=== PATIENT | female | born 1945 | race Caucasian/White ===

== ENCOUNTER 2020-06-19 12:31 | Emergency (ER) | payer MEDICARE, OTHER ==
--- OUTSIDE RECORDS SUMMARY | 2020-06-19 12:33 | XMS REPORT | Summary of Care ---
:1945 Author Organization [facility] Address [address] [place] [address] Care Team Providers Name Role Phone Jacob Haley Primary Care Provider Reason for Referral (Routine) Status Reason Specialty Diagnoses / Referred By Referred To Procedures Contact Contact New Request Vascular Surgery Diagnoses Leg swelling James Veronica BILATERAL VENOUS DUPLEX LOWER EXTREMITY BY VASCULAR LAB MD Asia [address] [place] [phone] Reason for Visit Reason Comments LEG SWELLING (Routine) Status Reason Specialty Diagnoses / Referred By Referred To Procedures Contact Contact Closed SHAYY-VASCULAR Diagnoses Atherosclerosis of [place] arteries of extremities with rest pain, bilateral legs Edema, unspecified Essential (primary) hypertension Jacob Haley Jennifer, SURGERY / Procedures CONSULT VASCULAR SURGERY NEW VISIT (FIRST TIME) [address] Jung ALEXANDRA Vascular Surgery [facility] [address] [facility] [address] [place], [place] Phone: [phone] Phone: Fax: Encounter Details Date Type Department Care Team Description 04/22/2020 Office Visit [facility] Vascular Asia Veronica L eg swelling (Primary Surgery- Inga ALEXANDRA Dx) [address] [place] [address] [address] [address] [place], [place] [phone] [address] [phone] Allergies No Known Allergiesdocumented as of this encounter (statuses as of 04/22/2020) Medications Medication Sig Dispensed Refills Start Date End Date Status levothyroxine (EUTHYROX) Take 100 mcg by 0 Active 100 mcg tablet mouth. chlorthalidone 25 mg Take 25 mg by 0 Active tablet mouth daily. atorvastatin 10 mg tablet Take 10 mg by 0 Active mouth at bedtime. ASPIRIN LOW DOSE ORAL Take 81 mg by 0 Active mouth. documented as of this encounter (statuses as of 04/22/2020) Active Problems Problem Noted Date Leg swelling 04/22/2020 documented as of this encounter (statuses as of 04/22/2020) Social History Tobacco Use Types Packs/Day Years Used Date Never Assessed Sex Assigned at Date Recorded Not on file Job Start Date Occupation Industry Not on file Not on file Not on file Travel History Travel Start Travel End No recent travel history available. COVID-19 Exposure Response Date Recorded In the last month, have you been in contact with No / Unsure 04/22/2020 8:30 AM CDT someone who was confirmed or suspected to have Coronavirus / COVID-19? documented as of this encounter Last Filed Vital Signs Vital Sign Reading Time Taken Comments Blood Pressure 146/83 04/22/2020 8:30 AM CDT Pulse 108 04/22/2020 8:30 AM CDT Temperature 36.7 C (98 F) 04/22/2020 8:30 AM CDT Respiratory Rate 18 04/22/2020 8:30 AM CDT Oxygen Saturation - - Inhaled Oxygen Concentration - - Weight 88.7 kg (195 lb 9.6 oz) 04/22/2020 8:30 AM CDT Height - - Body Mass Index - - documented in this encounter Progress Notes Asia Veronica MD - 04/22/2020 8:30 AM CDTI discussed the patient with Dr. Gill then personally examined the patient on 04/22/2020. I agree with the note as detailed by Dr. Gill. I actively participated in the decision-making process regarding the assessment and plan of care. Please see the resident's note for additional details. Venous duplex, compression stockings, elevation when able, 6 week f/u. Asia Veronica MD, VI [facility] Vascular Surgery Fausto Webb MD - 04/22/2020 8:30 AM CDT Vascular Surgery Clinic Note Date of Service: 04/22/2020 HISTORY OF PRESENT ILLNESS: This 74 year old year old female patient presents with chief complaint of aching and swollen legs. For the past few years, the patient has noticed a worsening pain in bilateral lower extremities from the calf down to her feet. The pain is slightly worst on the left side, but both are very bothersome. She describes the pain as dull and achy and can reach up to an 8 of 10 in severity. The pain is worsened with standing like when she showers or takes out the trash. The pain is relieved by sitting down and subsides after a few minutes. She also endorses approximately 2 months of bilateral leg swelling. She does note that the swelling coincides with starting of atorvastatin 10 mg daily. The swelling is not relieved by laying down and is present upon awaking in the morning. She tried compression stockings but had difficulty getting them on and they were too uncomfortable. 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 Hypothyroidism Hyerlipidemia No past surgical history on file. Medications: Current Outpatient Medications on File Prior to Visit Medication Sig Dispense Refill ASPIRIN LOW DOSE ORAL Take 81 mg by mouth. atorvastatin 10 mg tablet Take 10 mg by mouth at bedtime. chlorthalidone 25 mg tablet Take 25 mg by mouth daily. levothyroxine (EUTHYROX) 100 mcg tablet Take 100 mcg by mouth. No current facility-administered medications on file prior to visit. I have reviewed the social history, it is significant for 50 pack year smoking history. I have reviewed the family history, it is non-contributory. Allergies: No Known Allergies Make sure patient is not allergic to Contrast (Iodine): No Review of Systems: (-)=Negative,(+)=Positive Constitutional: (-) fever, (-) chills Eyes: (-) Amarosis fugax Mouth/Throat: (-) facial droop Cardiovascular: (-) chest pain, (-) palpitations Respiratory: (-) cough, (-) shortness of breath, (-) dyspnea on exertion Gastrointestinal: (-) weight loss, (-) abdominal pain, (-) nausea, (-) vomiting Endocrine: (+) thyroid disease, (-) heat intolerance, (-) diabetes, (-) cold intolerance, (-) polyuria, (-) polydipsia, (-) renal insufficiency Musculoskeletal: negative Integumentary: (+) swelling Hematologic: (-) easy bruising, (-) previous heparin and (-) previous exposure Infectious Disease: (-) Neuro: negative Physical Exam: BP (!) 146/83 (BP Location: Left arm, Patient Position: Sitting, BP CUFF SIZE: Adult Large) | [id number] | Temp 36.7 C (98 F) (Oral) | Resp 18 | Wt 195 lb 9.6 oz (88.7 kg) Constitutional: alert, healthy and no acute distress Facial Droop: No Eyes: extra ocular movements intact Head: normal Respiratory: breathing comfortably on room air Cardio: regular rate Extremities: +3 pitting edema bilaterally up to the knee Neurologic: alert and oriented x 3 Psychiatric: alert, with appropriate affect Hematologic: (-) bruises and (-) hematoma Pulses: Left DP: Wave form heard on doppler Left PT: Wave form heard on doppler Right DP: Wave form heard on doppler Right PT: Wave form heard on doppler Labs: No new labs. Imaging: No new imaging. Vascular Labs: I independently reviewed the Vascular Lab reports. Significant abnormals are ANJANA of .84. Diagnosis: Renetta Cano is a 74 year old female likely to have Chronic Venous Insufficiency. ANJANA and presence of pedal pulses make PVD unlikely. Will order duplex study for evaluation and compression stocking trial. -Venous Duplex Study -Compression Stockings 20-30 mmHg support -6 week f/u Fausto Gill MD Surgery PGY-1 Tamar Trammell - 04/22/2020 8:30 AM Derek Cano is a 74 year old female comes to clinic independent in ambulation for new patient bilateral leg pain and swellin. Pt comes alone . Pt in NAD w/ pain reported 0/10. Pt preferred language is French. Pt. denies fall in last 12 months. Allergies and medications reviewed and updated. [facility] [address] [place] [address] - [address] Tamar Encarnacion 04/22/2020 8:36 AM documented in this encounter Plan of Treatment Date Type Specialty Care Team Description 04/29/2020 Operations Trainer Visit Cardiology Pc, Ad[facility] Vascular Room 1 - 06/10/2020 Office Visit Vascular Surgery Osiris Veronica MD [address] [place] [address] [phone] Health Maintenance Due Date Last Done Comments HEPATITIS C (HCV) SCREEN 1945 DTaP,Tdap,and Td Vaccines (1 - Tdap) 1957 Breast Cancer Screening (MAMMOGRAM) 1986 COLONOSCOPY 1996 Zoster Recombinant Vaccine (SHINGRIX) (1 of 2) 1996 Medicare Wellness Visit 2011 Osteoporosis Screening 2011 PNEUMOCOCCAL VACCINES 65+ (1 of 2 - PCV13) 2011 INFLUENZA VACCINE (#1) 2020 Depression Screening 04/22/2021 04/22/2020 documented as of this encounter Results Not on filedocumented in this encounter Visit Diagnoses Diagnosis Leg swelling - Primary Swelling of limb documented in this encounter Insurance Payer Benefit Plan / Subscriber ID Effective Phone Address T ype Group Dates MEDICARE MEDICARE PART A xxxxxxxxxxx 2011-Pres [phone] [employer] [place] [place] Medicare & B ent [id number] ANN[address]ISE STODDARD [address] [facility] [id number] 2019-Pres Indemnity AND LIFE BENEFITS ent documented as of this encounter"
--- OUTSIDE RECORDS SUMMARY | 2020-06-19 12:33 | XMS REPORT | Summary of Care ---
:1945 Author Organization [facility] - Health Address [address] [place] [address] Care Team Providers Name Role Phone Haley Jacob Tristin Primary Care Provider Encounter Details Date Type Department Care Team Description 06/02/2020 Orders Only [facility] Doctor Unassigned, No [address] [facility] [place] [address] [address] [place] [address] Allergies No Known Allergiesdocumented as of this encounter (statuses as of 06/02/2020) Medications Medication Sig Dispensed Refills Start Date [...] as of this encounter (statuses as of 06/02/2020) Active Problems Problem Noted Date Leg swelling 04/22/2020 documented as of this encounter (statuses as of 06/02/2020) Social History Tobacco Use Types Packs/Day Years Used Date Never Assessed Sex Assigned at Date Recorded Not on file documented as of this encounter Last Filed Vital Signs Not on filedocumented in this encounter Plan of Treatment Date Type Specialty Care Team Description 06/02/2020 Appointment Vascular Sonography Moises Beard MD [address] [place] [address] [address] [place], [place] [address] Ji Ford Cardio Vascular 06/10/2020 Office Visit Vascular Surgery Osirsi Veronica MD [address] [place] [address] [phone] Health Maintenance Due Date Last Done Comments HEPATITIS C (HCV) SCREEN 1945 DTaP,Tdap,and Td Vaccines (1 - Tdap) 1965 Breast Cancer Screening (MAMMOGRAM) 1986 COLON CANCER SCREENING ANNUAL FIT/FOBT 1996 COLON CANCER SCREENING FIT DNA EVERY 3 YEARS 1996 COLON CANCER SCREENING SIGMOIDOSCOPY EVERY 5 YEARS 1996 COLONOSCOPY 1996 Colorectal Cancer Screening 1996 Zoster Recombinant Vaccine (SHINGRIX) (1 of 2) 1996 Medicare Wellness Visit 2011 Osteoporosis Screening 2011 PNEUMOCOCCAL VACCINES 65+ (1 of 1 - PPSV23) 2011 INFLUENZA VACCINE (#1) 2020 Depression Screening 04/22/2021 04/22/2020 documented as of this encounter Procedures Procedure Name Priority Date/Time Associated Diagnosis Comme nts ASSIGNMENT OF BENEFITS Routine 06/02/2020 1:54 PM CDT documented in this encounter Results Not on filedocumented in this encounter Insurance Payer Benefit Plan / Subscriber ID Effective Phone Address T ype Group Dates MEDICARE MEDICARE PART A [id number] 2011-Pres [phone] [employer] [place] Medicare & B ent [id number] ANN[address]ISE STODDARD [phone] [facility] [id number] 2019-Pres Indemnity AND LIFE BENEFITS ent documented as of this encounter
--- OUTSIDE RECORDS SUMMARY | 2020-06-19 12:33 | XMS REPORT | Summary of Care ---
:1945 Author Organization [facility] Address [address] [place] [address] Care Team Providers Name Role Phone Jacob Haley Primary Care Provider Reason for Referral (Routine) Status Reason Specialty Diagnoses / Referred By Contact Refe rred To Procedures Contact New Request Diagnoses Encounter for screening for stenosis of carotid artery Asia Veronica Procedures CAROTID DUPLEX BILATERAL BY VASCULAR LAB [address] [place] [phone] Phone: Reason for Visit Reason Comments Leg Pain bilateral LEG SWELLING bilateral Encounter Details Date Type Department Care Team Description 06/10/2020 Office Visit [facility] [place] [facility] Vascular Asia Veronica E ncounter for Surgery- Inga ALEXANDRA screening for [address] stenosis of carotid Drive [place], [place] artery (Primary Dx) [address] [address] [place], [place] [phone] [address] [phone] Allergies No Known Allergiesdocumented as of this encounter (statuses as of 06/11/2020) Medications Medication Sig Dispensed Refills Start Date [...] as of this encounter (statuses as of 06/11/2020) Active Problems Problem Noted Date Hypertension 06/11/2020 Hyperlipidemia 06/11/2020 Leg swelling 04/22/2020 documented as of this encounter (statuses as of 06/11/2020) Social History Tobacco Use Types Packs/Day Years Used Date Never Assessed Sex Assigned at Date Recorded Not on file COVID-19 Exposure Response Date Recorded In the last month, have you been in contact with No / Unsure 06/10/2020 8:22 AM CDT someone who was confirmed or suspected to have Coronavirus / COVID-19? documented as of this encounter Last Filed Vital Signs Vital Sign Reading Time Taken Comments Blood Pressure 156/81 06/10/2020 8:22 AM CDT Pulse 108 06/10/2020 8:22 AM CDT Temperature 36.2 C (97.2 F) 06/10/2020 8:22 AM CDT Respiratory Rate 18 06/10/2020 8:22 AM CDT Oxygen Saturation - - Inhaled Oxygen Concentration - - Weight 87.8 kg (193 lb 9.6 oz) 06/10/2020 8:22 AM CDT Height - - Body Mass Index - - documented in this encounter Progress Notes Asia Veronica MD - 06/10/2020 8:15 AM CDTI discussed the patient with Dr. Nation then personally examined the patient on 06/10/2020. I agree with the note as detailed by Dr. Nation. I actively participated in the decision-making process regarding the assessment and plan of care. Please see the resident's note for additional details. Patient was not able to wear compression stockings as she stated they were hard to get on and painful. We gave her REBEKA hose in clinic today. Will also screen her for carotid disease given smoking history. Does complain of some slight worsening in [place] and leg swelling that started today - recommended that if itpersists or continues to worsen then to contact her PCP as they may need to increase diuretic therapy. Only shown to have left GSV below knee reflux which would not treat surgically given symptoms not c onsistent. Was unable to feel pulses in feet today given swelling but confirmed strong biphasic doppler signals in DP and PT bilaterally. RTC in 6 weeks. Asia Veronica MD, VI [facility] Vascular Surgery Tamar Encarnacion - 06/10/2020 8:15 AM Marciasixto Cano is a 74 year old female comes to clinic independent in ambulation for bilateral leg pain and swelling. Pt comes alone . Pt in NAD w/ pain reported 04/29. Pt preferred language is Mongolian. Pt. denies fall in last 12 months. Allergies and medications reviewed and updated. [facility] [address] [place] [address] Tamar Encarnacion 06/10/2020 8:23 AM Ethan Villatoro MD - 06/10/2020 8:15 AM CDT VASCULAR SURGERY CLINIC NOTE Progress Note Date of Service: 06/10/2020 Visit type: follow up venous studies HISTORY OF PRESENT ILLNESS: Renetta Cano is a 74 year old year old female patient with a history of HTN, HLD, and hypothyroidismwho is here BLE venous studies after new patient visit. She has concerns about severe leg pain whilestanding in shower and taking out the trash. One episode she could barely walk out of the shower on the account of her pain in both legs. When asked about laterality she believes the pain is more on the left. She doesn't have any typical symptoms of arterial insufficiency with bilateral palpable pulses. However her presentation fits more with venous insufficiency. She does not walk or exercise so shecannot give us symptoms of what her legs feel like on exertion. The main limiting factor for her activity is generalized fatigue. She does house activities without pain. She describes the pain as throbbing with swelling in both legs worse on the left than right. She smokes 1ppd for years and does not plan on lowering the amount. She was amenable to leg exercises. She wore compression stockings for 1 day that were too tight and uncomfortable and she did not see any improvements. She does have generalfatigue especially since COVID has started. No fever, no chills, no cough, no wheezing. She does notwant to make changes as she states she wants to take a "magic pill" to make it stop. 10-point ROS negative except per HPI. Current Outpatient Medications Medication Instructions ASPIRIN LOW DOSE ORAL 81 mg, Oral atorvastatin (LIPITOR) 10 mg, Oral, QHS chlorthalidone (HYGROTON) 25 mg, Oral, DAILY levothyroxine (EUTHYROX) 100 mcg, Oral Physical Exam: BP (!) 156/81 (BP Location: Left arm, Patient Position: Sitting, BP CUFF SIZE: Adult Medium) | Pulse 108 | Temp 36.2 C (97.2 F) (Temporal Artery) | Resp 18 | Wt 193 lb 9.6 oz (87.8 kg) Constitutional: no acute distress, alert and oriented x3 Respiratory: breathing unlabored on room air Abdomen: soft, symmetrical, non-distended Sensory Function: within normal limits Neuro: NFD Extremities/MSK: motor function within normal limits Vascular: +tri DP, PT bilaterally Psych: appropriate insight, affect and judgment Vascular Labs: Procedure A venous duplex examination of the BILATERAL lower extremities was performed to determine the presence or absence of venous patency and competency. Exam was performed in an upright and reverse Trendelenburg position. Rt Deep Findings The deep veins of the right lower extremity demonstrate complete coaptation of the vein jules with compression. Doppler flow analysis is spontaneous, phasic, and augments with distal compression. RT Superficial GSV at the saphenofemoral junction measures 0.537 cm GSV at the proximal thigh measures 0485 cm GSV at the mid thigh measures 0.444 cm GSV at the popliteal crease measures 0.281 cm GSV at the below the knee measures 0.225 cm SSV proximal measures 0.468 cm Anterior Accessory Saphenous Vein measures 0.372 cm. LT Deep Findings The deep veins of the left lower extremity demonstrate complete coaptation of the vein jules with compression. Doppler flow analysis is spontaneous, phasic, and augments with distal compression. LT Superficial GSV at the saphenofemoral junction measures 0.592 cm GSV at the proximal thigh measures 0.656 cm GSV at the mid thigh measures 0.581 cm GSV at the popliteal crease measures 0.343 cm GSV at the below the knee measures 0.297 cm SSV proximal measures 0.158 cm Anterior Accessory Saphenous Vein measures 0.355 cm. Interpretation Summary No evidence of deep or superficial venous thrombosis in either lower extremity. Superficial venous insufficiency lasting >500 milliseconds is identified in the greater saphenous veins below the knee (1112 milliseconds) on the LEFT lower extremity. 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 She hadissues with pain and difficulty putting compression stockings on that were 30-40mmHg. We suggested alower compression grade and gave her compression stockings that were appropriate for her size. She has agreed to try wearing them everyday with more monitor of leg pain. She also has bilateral leg swelling that does not reduce with elevation and had an SBP of 156 despite taking morning hypertensive meds. We suggested she contacts her PCP for possibly higher dose of diuretic. She also has some generalized fatigue and lethargia that may need to be investigated by her PCP due to her history of hypothyro idism. - Needs to see PCP for hypothyroidism and HTN/CHF surveillance - compression stockings 6 wks - RTC 6 weeks Patient seen and discussed with Dr. Veronica on 06/10/2020. Ethan Nation MD PGY-1, Vascular Surgery 06/10/2020 documented in this encounter Plan of Treatment Health Maintenance Due Date Last Done Comments [...] filedocumented in this encounter Visit Diagnoses Diagnosis Encounter for screening for stenosis of carotid artery - Primary documented in this encounter Insurance Payer Benefit Plan / Subscriber ID Effective Phone Address T [facility] Dates MEDICARE MEDICARE PART A [id number] 2011-Pres [phone] [employer] Medicare & B ent [id number] ANN[address]ISE STODDARD [phone] [facility] [id number] 2019-Pres Indemnity AND LIFE BENEFITS ent documented as of this encounter
--- OUTSIDE RECORDS SUMMARY | 2020-06-19 12:33 | XMS REPORT | Continuity of Care Document ---
:1945 Author Organization [facility] t Address [address] [place] [address] Care Team Providers Name Role Phone Glenys ALEXANDRA Attending Clinician Problems This patient has no known problems. Allergies, Adverse Reactions, Alerts This patient has no known allergies or adverse reactions. Medications This patient has no known medications. Procedures This patient has no known procedures. Encounters Start End Encounter Admission Attending Care Care Encounter Source Date/Time Date/Time Type Type Clinicians Facility Department ID 2020-06-10 2020-06-10 Office TIEN Veronica [id number] 08:10:28 08:57:17 Visit Asia Xiong [id number] Melchor [id number] Rajendra [phone] [address] Results This patient has no known results.
--- OUTSIDE RECORDS SUMMARY | 2020-06-19 12:33 | XMS REPORT | Summary of Care ---
:1945 Author Organization [facility] Address [address] [place] [address] Care Team Providers Name Role Phone Jacob Haley Primary Care Provider Reason for Referral (Routine) Status Reason Specialty Diagnoses / Referred By Contact Refe rred To Procedures Contact New Request Diagnoses Encounter for screening for stenosis of carotid artery Asia Veronica Procedures CAROTID DUPLEX BILATERAL BY VASCULAR LAB [address] [place] [phone] Phone: Reason for Visit Reason Comments Leg Pain bilateral LEG SWELLING bilateral Encounter Details Date Type Department Care Team Description 06/10/2020 Office Visit [facility] Vascular Asia Veronica E ncounter for Surgery- Inga ALEXANDRA screening for [address] stenosis of carotid Drive [place], [place] artery (Primary Dx) [address] [address] [place], [place] [phone] [address] [phone] Allergies No Known Allergiesdocumented as of this [...] in 6 weeks. Asia Veronica MD, VI [facility] Vascular Surgery Tamar Encarnacion - 06/10/2020 8:15 AM Marciasixto Cano is a 74 year old female comes to clinic independent in ambulation for bilateral leg pain and swelling. Pt comes alone . Pt in NAD w/ pain reported 04/29. Pt preferred language is Uzbek. Pt. denies fall in last 12 months. Allergies and medications reviewed and updated. [facility] [address] [place] [address] Tamar Encarnacion 06/10/2020 8:23 AM Ethan Villatoro [...] / Subscriber ID Effective Phone Address T [facility] Group Dates MEDICARE MEDICARE PART A [id number] 2011-Pres [phone] [employer] Medicare & B ent [id number] ANN[place]ISE STODDARD [phone] [facility] [id number] 2019-Pres Indemnity AND LIFE BENEFITS ent documented as of this encounter
--- OUTSIDE RECORDS SUMMARY | 2020-06-19 12:33 | XMS REPORT | Summary of Care ---
:1945 Author Organization [facility] Address [address] [place] [id number] Care Team Providers Name Role Phone Jacob Haley Primary Care Provider Reason for Referral (Routine) Status Reason Specialty Diagnoses / Referred By Referred To Procedures Contact Contact New Request Vascular Surgery Diagnoses Leg swelling James Veronica BILATERAL VENOUS DUPLEX LOWER EXTREMITY BY VASCULAR LAB MD Asia [address] [place] [phone] Reason for Visit Reason Comments LEG SWELLING (Routine) Status Reason Specialty Diagnoses / Referred By Referred To Procedures Contact Contact Closed SHAYY-VASCULAR Diagnoses 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, bilateral legs Edema, unspecified Essential (primary) hypertension Jacob Haley Jennifer, SURGERY / Procedures CONSULT VASCULAR SURGERY NEW VISIT (FIRST TIME) [address] ALEXANDRA Vascular Surgery [facility] [address] [facility] [address] [place], [place] Phone: [phone] Phone: Fax: Encounter Details Date Type Department Care Team Description 04/22/2020 Office Visit [facility] Vascular Asia Veronica L eg swelling (Primary Surgery- Inga ALEXANDRA Dx) [address] [place] [address] [address] [address] [place], [place] [phone] [address] [phone] Allergies No Known Allergiesdocumented as of this [...] Sitting, BP CUFF SIZE: Adult Large) | [id number] | Temp 36.7 C (98 F) (Oral) [...] pain reported 0/10. Pt preferred language is Amharic. Pt. denies fall in last 12 months. Allergies and medications reviewed and updated. [facility] [address] [place] [address] - [address] Tamar Encarnacion 04/22/2020 8:36 AM documented in this encounter Plan of Treatment Date Type Specialty Care Team Description 04/29/2020 Gas Producer Visit Cardiology P[facility], Adc Vascular Room 1 - 06/10/2020 Office Visit Vascular Surgery Osiris Veronica MD [address] [place] [address] [phone] Health Maintenance Due Date Last [...] SOHAM X Medicare & B ent [id number] ANNELISE STODDARD [phone] [facility] [id number] 2019-Pres Indemnity AND LIFE BENEFITS ent documented as of this encounter"
[2020-06-19 13:22] LABS: Absolute Lymphocytes (CBC) 2.9 K/uL (0.7-4.9); Basophils % 1.1 % (0-1.3); Hematocrit 38.8 % (36.0-45.0); Lymphocytes % 29.2 % (15.3-44.8); MPV 8.7 fL (7.6-11.3); RBC Red Blood Cell Count 4.15 M/uL (3.86-4.86)
[2020-06-19 13:36] LABS: Potassium 3.8 mmol/L (3.5-5.1)
[2020-06-19] MEDS ORDERED: BUPIVACAINE 0.5% PF 10 ML VIAL ONE (13:44)
[2020-06-19] MEDS ORDERED: LIDOCAINE 1% W/EPI 1:100,000 MDV 20 ML VIAL ONE (13:44)
--- NOTE | 2020-06-19 13:58 | ER ---
Nurse's Notes [facility] [place], [place] [facility] Name: Renetta Cano Age: 74 yrs Sex: Female : 1945 Arrival Date: 06/19/2020 Time: 12:32 Bed 7 Private MD: Jacob Haley E Diagnosis: Cutaneous abscess of groin-left;Cellulitis of groin-left Presentation: 06/19 12:43 Chief complaint: Patient states: left groin abscess with drainage x 1 week. Coronavirus sv screen: Client denies travel out of the [place] in the last 14 days. At this time, the client does not indicate any symptoms associated with coronavirus-19. Ebola Screen: No symptoms or risks identified at this time. Risk Assessment: Do you want to hurt yourself or someone else? Patient reports no desire to harm self or others. Onset of symptoms was June 12, 2020. 12:43 Method Of Arrival: Ambulatory sv 12:43 Acuity: BONILLA 3 sv 12:44 Initial Sepsis Screen: Does the patient meet any 2 criteria? HR > 90 bpm. No. Patient's sv initial sepsis screen is negative. Does the patient have a suspected source of infection? Yes: Skin breakdown/wound. Historical: - Allergies: 12:44 No Known Allergies; sv - PMHx: 12:44 None; sv - PSHx: 12:44 None; sv - Immunization history:: Adult Immunizations up to date. - Social history:: Smoking status: Patient reports the use of cigarette tobacco products, smokes one pack cigarettes per day. Screenin:22 Abuse screen: Denies threats or abuse. Nutritional screening: No deficits noted. ll1 Tuberculosis screening: No symptoms or risk factors identified. Fall Risk None identified. IV access (20 points). Ambulatory Aid- None/Bed Rest/Nurse Assist (0 pts). Gait- Normal/Bed Rest/Wheelchair (0 pts) Total Leone Fall Scale indicates No Risk (0-24 pts). Assessment: 13:50 General: Appears in no apparent distress. Behavior is calm, cooperative. Pain: ll1 Complains of pain in L groin Quality of pain is described as aching, Pain began 10 days. Derm: Abscess located on L groin is nickel sized, has purulent drainage. Vital Signs: 12:44 BP 135 / 66; Pulse 100; Resp 18; Temp 98.7; Pulse Ox 100% ; Weight 88.45 kg; Height 5 sv ft. 5 in. (165.10 cm); 14:20 BP 128 / 50; Pulse 98; Resp 18; Pulse Ox 99% ; ll1 12:44 Body Mass Index 32.45 (88.45 kg, 165.10 cm) sv ED Course: 12:32 Patient arrived in ED. mr 12:32 Jacob Haley MD is Private Physician. mr 12:43 Triage completed. sv 12:43 Arm band placed on. sv 12:47 Rafat Ayoub PA is PHCP. cp 12:47 Jennifer Connors MD is Attending Physician. cp 13:10 Initial lab(s) drawn, by me, sent to lab. Inserted saline lock: 20 gauge in right hand, dh3 using aseptic technique. Blood collected. 13:57 Carlton Loera MD is Referral Physician. cp 14:20 Socorro Vyas, KRISTIE is Primary Nurse. ll1 14:22 Assist provider with I \T\ D: of an abscess on left groin Performed by Rafat CASTELAN ll1 Wound packed. iodoform gauze, Dressing with 4X4s, tape Patient tolerated well. 14:23 Patient has correct armband on for positive identification. Placed in gown. Bed in low ll1 position. Call light in reach. 14:23 IV discontinued, intact, bleeding controlled, No redness/swelling at site. Pressure ll1 dressing applied. Administered Medications: 13:50 Drug: Lidocaine-Epinephrine -1%: (1:100,000) 10 ml Volume: 20 ml; Route: Infiltration; ll1 14:19 Follow up: Response: No adverse reaction ll1 13:50 Drug: Marcaine (0.5 %) 10 ml Volume: 10 ml; Route: Infiltration; ll1 14:20 Follow up: Response: No adverse reaction ll1 14:10 Drug: Bactrim (160 mg-800 mg (DS) 1 tablet Route: PO; ll1 14:20 Follow up: Response: No adverse reaction ll1 14:10 Drug: Doxycycline 100 mg Route: PO; ll1 14:20 Follow up: Response: No adverse reaction ll1 Outcome: 13:58 Discharge ordered by . cp 14:23 Discharged to home ambulatory. ll1 14:23 Condition: stable 14:23 Discharge instructions given to patient, Instructed on discharge instructions, follow up and referral plans. medication usage, wound care, Demonstrated understanding of instructions, follow-up care, medications, wound care, Prescriptions given X 4. 14:24 Patient left the ED. ll1 Signatures: Dina Caldwell RN RN Nargis Amaro mr Anitra, Rafat, ANNELISE Key, Isha [facility] Socorro Vyas RN RN 1 Corrections: (The following items were deleted from the chart) 12:46 12:44 Pulse 100bpm; Resp 18bpm; Pulse Ox 100%; Temp 98.7F; 88.45 kg; Height 5 ft. 5 sv in.; BMI: 32.4; sv 14:24 14:21 General: Appears in no apparent distress. Behavior is calm, cooperative, ll1 ll1 14:24 14:21 Pain: Complains of pain in L groin Quality of pain is described as aching, Pain 1 began 10 days ll1 14:24 14:21 Derm: Abscess located on L groin is nickel sized, has purulent drainage, ll1 ll1
--- NOTE | 2020-06-19 13:58 | EDPHYS ---
Physician Documentation [facility] Name: Renetta Cano Age: 74 yrs Sex: Female : 1945 Arrival Date: 06/19/2020 Time: 12:32 Bed 7 Private MD: Jacob Haley E ED Physician Jennifer Connors HPI: 06/19 13:00 This 74 yrs old Female presents to ER via Ambulatory with complaints of cp Abscess. 13:00 The patient presents with an abscess of the left groin. Description: draining, cp erythematous. Onset: The symptoms/episode began/occurred 1 week(s) ago. Associated signs and symptoms: Pertinent positives: drainage, erythema, swelling, Pertinent negatives: fever. Severity of symptoms: in the emergency department the symptoms are unchanged, despite home interventions. Historical: - Allergies: 12:44 No Known Allergies; sv - PMHx: 12:44 None; sv - PSHx: 12:44 None; sv - Immunization history:: Adult Immunizations up to date. - Social history:: Smoking status: Patient reports the use of cigarette tobacco products, smokes one pack cigarettes per day. ROS: 13:05 Skin: Positive for abscess, erythema, of the left groin. cp 13:05 Constitutional: Negative for body aches, chills, fever. cp 13:05 Abdomen/GI: Negative for abdominal pain. 13:05 : Negative for urinary symptoms. 13:05 All other systems are negative. Exam: 13:10 Constitutional: The patient appears in no acute distress, alert, awake, non-toxic, well cp developed, well nourished. 13:10 Head/Face: Normocephalic, atraumatic. cp 13:10 Chest/axilla: Inspection: normal. 13:10 Cardiovascular: Rate: tachycardic. 13:10 Respiratory: the patient does not display signs of respiratory distress, Respirations: normal. 13:10 Abdomen/GI: Inspection: abdomen appears normal, Palpation: abdomen is soft and non-tender, in all quadrants. 13:10 Skin: abscess, that is small, of the left groin, with drainage, that is purulent, with surrounding cellulitis, that is mild. Vital Signs: 12:44 BP 135 / 66; Pulse 100; Resp 18; Temp 98.7; Pulse Ox 100% ; Weight 88.45 kg; Height 5 sv ft. 5 in. (165.10 cm); 14:20 BP 128 / 50; Pulse 98; Resp 18; Pulse Ox 99% ; ll1 12:44 Body Mass Index 32.45 (88.45 kg, 165.10 cm) sv Procedures: 14:00 I \T\ D: Incision and drainage was performed for an abscess of the left groin Prepped cp with Betadine, Anesthetized with 8 ml's 1% Lidocaine w/ Epi. mixed with 0.5% marcaine. Incised with #11 blade. Drained small amount bloody fluid. Packed with iodoform gauze, Dressing: sterile 4x4 gauze, the patient tolerated the procedure well. MDM: 12:52 Patient medically screened. cp 13:10 Differential diagnosis: abscess, cellulitis. cp 13:57 Data reviewed: vital signs, nurses notes, and as a result, I will discharge patient. cp 13:57 Counseling: I had a detailed discussion with the patient and/or guardian regarding: the cp historical points, exam findings, and any diagnostic results supporting the discharge/admit diagnosis, the need for outpatient follow up, a general surgeon, to return to the emergency department if symptoms worsen or persist or if there are any questions or concerns that arise at home. 06/19 12:58 Order name: CBC with Diff; Complete Time: 13:55 cp 06/19 13:55 Interpretation: Normal except: RDW 15.5; EOSINOPHIL % 5.7. cp 06/19 12:58 Order name: BMP; Complete Time: 13:55 cp 06/19 13:56 Interpretation: Normal except: CL 108; BUN 19; GFR 51. cp 06/19 12:58 Order name: I\T\D Setup; Complete Time: 13:36 cp 06/19 12:58 Order name: IV; Complete Time: 13:14 cp Administered Medications: 13:50 Drug: Lidocaine-Epinephrine -1%: (1:100,000) 10 ml Volume: 20 ml; Route: Infiltration; ll1 14:19 Follow up: Response: No adverse reaction ll1 13:50 Drug: Marcaine (0.5 %) 10 ml Volume: 10 ml; Route: Infiltration; ll1 14:20 Follow up: Response: No adverse reaction ll1 14:10 Drug: Bactrim (160 mg-800 mg (DS) 1 tablet Route: PO; ll1 14:20 Follow up: Response: No adverse reaction ll1 14:10 Drug: Doxycycline 100 mg Route: PO; ll1 14:20 Follow up: Response: No adverse reaction ll1 Disposition: 14:10 Chart complete. cp Disposition: 06/19/20 13:58 Discharged to Home. Impression: Cutaneous abscess of groin - left, Cellulitis of groin - left. - Condition is Stable. - Discharge Instructions: Skin Abscess, Cellulitis, Adult. - Prescriptions for Doxycycline Hyclate 100 mg Oral Tablet - take 1 tablet by ORAL route every 12 hours; 20 tablet. Tramadol 50 mg Oral Tablet - take 1 tablet by ORAL route every 8 hours as needed; 12 tablet. Bactrim DS 800- 160 mg Oral Tablet - take 1 tablet by ORAL route every 12 hours for 10 days; 20 tablet. Fluconazole 150 mg Oral Tablet - take 1 tablet by ORAL route once daily take 1 tablet at onset of symptoms and second tablet after finishing antibiotics; 2 tablet. - Medication Reconciliation Form, Thank You Letter, Antibiotic Education, Prescription Opioid Use form. - Follow up: Carlton Loera MD; When: Tomorrow; Reason: Wound Recheck. - Problem is new. - Symptoms have improved. Signatures: Dispatcher [employer] Dina Moran RN RN Rafat Cantor PA PA cp Socorro Vyas RN RN ll1 Corrections: (The following items were deleted from the chart) 14:24 13:58 06/19/2020 13:58 Discharged to Home. Impression: Cutaneous abscess of groin - ll1 left; Cellulitis of groin - left. Condition is Stable. Forms are Medication Reconciliation Form, Thank You Letter, Antibiotic Education, Prescription Opioid Use. Follow up: Carlton Loera; When: Tomorrow; Reason: Wound Recheck. Problem is new. Symptoms have improved. cp
[2020-06-19] MEDS ORDERED: DOXYCYCLINE 100 MG CAP PO ONE (14:15)
[2020-06-19] MEDS ORDERED: SMZ./TMP. 800/160 MG TABLET ONE (14:15)
[2020-06-22 17:59] VITALS: TEMP 98.7
[2020-06-22 18:00] VITALS: BP 128/50; O2SAT 99
== END 2020-06-19 14:24 | disposition home or self-care (01) ==
LOC: ER 12:31
PROC: 0J9C0ZZ Drainage of Pelvic Region Subcutaneous Tissue and Fascia, Open Approach (ICD-10-PCS; principal; 2020-06-19)
DX: L03.314 Cellulitis of groin (principal); F17.210 Nicotine dependence, cigarettes, uncomplicated
CPT/HCPCS: 36415; 80048; 85025; 99284

== ENCOUNTER 2020-11-01 03:04 | Emergency (ER) | payer OTHER ==
--- OUTSIDE RECORDS SUMMARY | 2020-11-01 03:07 | XMS REPORT | Summary of Care ---
:1945 Author Organization [facility] - [facility] Address [address] [place] [address] Care Team Providers Name Role Phone Jacob Haley Primary Care Provider Reason for Referral (Routine) Status Reason Specialty Diagnoses / Referred By Referred To Procedures Contact Contact New Request Vascular Surgery Diagnoses Pain in both lower extremities [place], James ANJANA WITH STRESS BY VASCULAR LAB MD Asia [address] [place] [phone] Reason for Visit Reason Comments Follow-up carotid stenosis Encounter Details Date Type Department Care Team Description 08/05/2020 Office Visit [facility] Vascular Asia Veronica P ain in both lower Surgery- Inga ALEXANDRA extremities (Primary [address] Drive [place], [place] [address] [address] [place], [place] [phone] [address] [phone] Allergies No Known Allergiesdocumented as of this encounter (statuses as of 08/05/2020) Medications Medication Sig Dispensed Refills Start Date [...] as of this encounter (statuses as of 08/05/2020) Active Problems Problem Noted Date Hypertension 06/11/2020 Hyperlipidemia 06/11/2020 Leg swelling 04/22/2020 documented as of this encounter (statuses as of 08/05/2020) Social History Tobacco Use Types Packs/Day Years Used Date Never Assessed Sex Assigned at Date Recorded Not on file COVID-19 Exposure Response Date Recorded In the last month, have you been in contact with No / Unsure 08/05/2020 11:46 AM CDT someone who was confirmed or suspected to have Coronavirus / COVID-19? documented as of this encounter Last Filed Vital Signs Vital Sign Reading Time Taken Comments Blood Pressure 137/73 08/05/2020 11:46 AM CDT Pulse 90 08/05/2020 11:46 AM CDT Temperature 36.2 C (97.1 F) 08/05/2020 11:46 AM CDT Respiratory Rate 20 08/05/2020 11:46 AM CDT Oxygen Saturation 98% 08/05/2020 11:46 AM CDT Inhaled Oxygen Concentration - - Weight 84.3 kg (185 lb 12.8 oz) 08/05/2020 11:46 AM CDT Height 172.7 cm (5' 8") 08/05/2020 11:46 AM CDT Body Mass Index 28.25 08/05/2020 11:46 AM CDT documented in this encounter Progress Notes Ethan Nation MD - 08/05/2020 10:45 AM CDT VASCULAR SURGERY CLINIC NOTE Progress Note Date of Service: 08/05/2020 Visit type: Follow up clinic visit HISTORY OF PRESENT ILLNESS: Renetta Cano is a 75 year old year old female patient with a medical history of HTN, HLD, and hypothyroidism who is here for venous study for leg swelling and unusual and screening carotid study follow up . She reports she notices a pattern with the pain and now mainly occurs when she stands and walks. She does not walk much further in a day than to her trash can, but during these activities she hasan achy pain. She smokes 1ppd for years and does not plan on lowering the amount. She does not do any physical activity. No fever, no chills, no fatigue, no weight change. No vision changes, no troubles breathing, no N/V. She had a few nights of crampy "seth horse" like pain a few nights ago but has since resolved. 10-point ROS negative except per HPI. Current Outpatient Medications Medication Instructions ASPIRIN LOW DOSE ORAL 81 mg, Oral atorvastatin (LIPITOR) 10 mg, Oral, QHS chlorthalidone (HYGROTON) 25 mg, Oral, DAILY levothyroxine (EUTHYROX) 100 mcg, Oral Physical Exam: BP 137/73 (BP Location: Right arm, Patient Position: Sitting, BP CUFF SIZE: Adult Large) | Pulse 90 | Temp 36.2 C (97.1 F) (Temporal Artery) | Resp 20 | Ht 1.727 m (5' 8") | Wt 84.3 kg (185 lb12.8 oz) | SpO2 98% | BMI 28.25 kg/m Constitutional: no acute distress, alert and oriented x3 Respiratory: breathing unlabored on room air Abdomen: soft, symmetrical, non-distended Sensory Function: within normal limits Neuro: NFD Extremities/MSK: swelling around medial ankle bilatera Vascular: palpable DP bilaterally Skin: no cuts, no wounds, no rashes or bruises Psych: appropriate insight, affect and judgment Labs/Imaging: No new labs Vascular Labs: Procedure A venous duplex examination of the BILATERAL lower extremities was performed to determine the presence or absence of venous patency and competency. Exam was performed in an upright and reverse Trendelenburgposition. Rt Deep Findings The deep veins of [...] extremity demonstrate complete coaptation of the vein jlues with compression. Doppler flow analysis is spontaneous, [...] greater saphenous veins below the knee (1112 milliseconds)on the LEFT lower extremity. Stenosis PSV cm/sec EDV cm/sec PSV cm/sec EDV cm/sec Stenosis NA -105.0 -27.5 Dist ICA -75.0 -21.4 NA NA -97.4 -22.2 Mid ICA -103.0 -28.2 NA 50-79% stenosed -278.0 -82.3 Prox ICA -165.0 -46.7 1-15% stenosed NA -123.0 NA Prox ECA -84.9 -1.6 NA NA -87.5 -23.2 Dist CCA 85.3 16.1 NA NA 129.0 29.2 Mid CCA 89.1 11.4 NA NA 100.0 NA Prox CCA 125.0 25.2 NA NA 32.4 NA Vertebral A 95.2 18.0 NA Other Plaque Plaque Other NA Heterogeneous, irregular plaque Prox ICA Heterogeneous, irregular plaque NA Antegrade flow NA Vertebral A NA Antegrade flow -0.81 ICA/CCA ratio cm/sec -1.9 Procedure A bilateral carotid duplex scan was performed. Right Extracranial There is intimal thickening in the common carotid artery. There is a moderate amount of hard plaque noted in the bulb extending into the internal carotid artery with color flow disturbance, spectral broadening, and elevated peak velocity noted in the internal carotid artery? findings suggest 50-79% stenosis. The external carotid artery is patent. The vertebral artery is antegrade. Left Extracranial There is intimal thickening in the common carotid artery. There is minimal hard plaque noted in the bulb, extending into the internal carotid artery with no evidence of color flow disturbance or hemodynamically significant peak velocities? findings suggest 1-15% stenosis in the internal carotid artery. The internal carotid artery is tortuous. The external carotid artery is patent. The vertebral artery is antegrade. Interpretation Summary Left: Findings suggest 1-15% stenosis in the internal carotid artery. Right: Findings suggest 50-79% stenosis in the internal carotid artery. Measurements and Calculations Right No Laterality Left Unit CCA ratio elgin 129.0 89.1 cm/sec ICA ratio elgin -105.0 -165.0 cm/sec Prox SCLA PSV 196.0 84.0 cm/sec Prox SCLA EDV 13.2 cm/sec Assessment/Plan Renetta Cano is a 75 year old female with HPI as above leg pain with standing and minimal activity. Her symptoms seem to be constantly changing, and although she has palpable DP pulse and h/o triphasicsignals in DP and PT bilaterally we will obtain stress ANJANA. She also agreed to use stationary bike at home to help improve circulation and hopefully provide some symptom relief. Her screening carotid study showed asymptomatic LANETTE with elevated velocity of 278 cm/s in her carotid study. - Follow up stress ANJANA - RTC 3 mo [Carotid follow-up will be in 6mo] Patient seen and discussed with Dr. Veronica on 08/05/2020. Ethan Nation MD PGY-1, Vascular Surgery 08/05/2020 Yoselyn Coker RN - 08/05/2020 10:45 AM CDTSaddy Cano is a 75 year old female comes to clinic independent in ambulation for carotid stenosis.Pt comes alone . Pt in NAD w/ pain reported 0/10. Pt preferred language is Israeli. Pt. denies fall in last 12 months. Allergies and medications reviewed and updated. 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 X Medicare & B ent [id number] ANNELISE STODDARD [phone] [facility] [id number] 2019-Pres Indemnity AND LIFE BENEFITS ent documented as of this encounter
--- OUTSIDE RECORDS SUMMARY | 2020-11-01 03:07 | XMS REPORT | Summary of Care ---
:1945 Author Organization [facility] - [facility] Address [address] [place] [address] Care Team Providers Name Role Phone Jacob Haley Primary Care Provider Reason for Referral (Routine) Status Reason Specialty Diagnoses / Referred By Referred To Procedures Contact Contact New Request Vascular Surgery Diagnoses Pain in both lower extremities Glenys, James ANJANA WITH STRESS BY VASCULAR LAB MD Asia [address] [place] [phone] Reason for Visit Reason Comments Follow-up carotid stenosis Encounter Details Date Type Department Care Team Description 08/05/2020 Office Visit [facility] Vascular Asia Veronica P ain in both lower Surgery- Inga ALEXANDRA extremities (Primary [address] Drive [place], [place] [address] [address] [place], [place] [phone] [address] [phone] Allergies No Known Allergiesdocumented as of this [...] Prox SCLA EDV 13.2 cm/sec Assessment/Plan Renetta aCno is a 75 year old female with [...] pain reported 0/10. Pt preferred language is Salvadorean. Pt. denies fall in last 12 months. Allergies and medications reviewed and updated. documented in this encounter Plan of Treatment Date Type Specialty Care Team Description 10/31/2020 Connie Cleaner Visit Cardiology Pc, Adc Vascular Room 1 - 11/11/2020 Office Visit Vascular Surgery Osiris Veronica MD [address] [place] [address] [phone] Health Maintenance Due Date Last Done [...] ype Group Dates MEDICARE MEDICARE PART A [id number] 2011-Pres [phone] [employer] X Medicare & B ent [id number] ANNELISE STODDARD [phone] [facility] [id number] 2019-Pres Indemnity AND LIFE BENEFITS ent documented as of this encounter
--- OUTSIDE RECORDS SUMMARY | 2020-11-01 03:07 | XMS REPORT | Summary of Care ---
:1945 Author Organization [facility] - [facility] Address [address] [place] [id number] Care Team Providers Name Role Phone Jacob Haley Primary Care Provider Reason for Referral (Routine) Status Reason Specialty Diagnoses / Referred By Referred To Procedures Contact Contact New Request Vascular Surgery Diagnoses Pain in both lower extremities Glenys, James ANJANA WITH STRESS BY VASCULAR LAB MD Asia [address] [place] [phone] Reason for Visit Reason Comments Follow-up carotid stenosis Encounter Details Date Type Department Care Team Description 08/05/2020 Office Visit [facility] Vascular Asia Veronica P ain in both lower Surgery- Inga ALEXANDRA extremities (Primary [address] Drive [place], [place] [address] [id number] [place], [place] [phone] [address] [phone] Allergies No Known Allergiesdocumented as of this [...] 278 cm/s in her carotid study. - Continue ASA/statin - Start stationary bike workouts - Follow up Stress ANJANA - RTC 3 mo [Carotid follow-up [...] pain reported 0/10. Pt preferred language is Vietnamese. Pt. denies fall in last 12 months. Allergies and medications reviewed and updated. documented in this encounter Plan of Treatment Date Type Specialty Care Team Description 10/31/2020 [facility] Visit [facility]iology [facility], Adc Vascular Room 1 - 11/11/2020 Office Visit Vascular Surgery Osiris Veronica MD [address] [place] [address] [phone] Health Maintenance Due Date Last [...] ype Group Dates MEDICARE MEDICARE PART A [id number] 2011-Pres [phone] [employer] X Medicare & B ent [id number] ANNELISE STODDARD [phone] [facility] [id number] 2019-Pres Indemnity AND LIFE BENEFITS ent documented as of this encounter
--- OUTSIDE RECORDS SUMMARY | 2020-11-01 03:07 | XMS REPORT | Summary of Care ---
:1945 Author Organization [facility] - [facility] Address [address] [place] [id number] Care Team Providers Name Role Phone Jacob Haley Primary Care Provider Reason for Referral (Routine) Status Reason Specialty Diagnoses / Referred By Referred To Procedures Contact Contact New Request Vascular Surgery Diagnoses Pain in both lower extremities Glenys, James ANJANA WITH STRESS BY VASCULAR LAB MD Asia [address] [place] [phone] Reason for Visit Reason Comments Follow-up carotid stenosis Encounter Details Date Type Department Care Team Description 08/05/2020 Office Visit [facility] Vascular Asia Veronica P ain in both lower Surgery- Inga ALEXANDRA extremities (Primary [address] Drive [place], [place] [address] [address] [place], [place] [phone] [phone] Allergies No Known Allergiesdocumented as of this encounter (statuses as of 08/09/2020) Medications Medication Sig Dispensed Refills Start Date [...] as of this encounter (statuses as of 08/09/2020) Active Problems Problem Noted Date Hypertension 06/11/2020 Hyperlipidemia 06/11/2020 Leg swelling 04/22/2020 documented as of this encounter (statuses as of 08/09/2020) Social History Tobacco Use Types Packs/Day Years [...] CDT documented in this encounter Progress Notes Asia Veronica MD - 08/05/2020 10:45 AM CDTI discussed the patient with Dr. Nation then personally examined the patient on 08/05/2020. I agree with the note as detailed by Dr. Nation. I actively participated in the decision-making process regarding the assessment and plan of care. Please see the resident's note for additional details. Asia Veronica MD, RPVI [facility] Vascular Surgery Ethan adhikari MD - 08/05/2020 10:45 AM CDT VASCULAR [...] 6mo] Patient seen and discussed with Dr. Veroniac on 08/05/2020. Ethan Nation MD PGY-1, Vascular Surgery 08/05/2020 TAYoselyn chaudhari RN - 08/05/2020 10:45 AM CDTSaddy Cano is a 75 year old female comes to clinic independent in ambulation for carotid stenosis.Pt comes alone . Pt in NAD w/ pain reported 0/10. Pt preferred language is Scottish. Pt. denies fall in last 12 months. Allergies and medications reviewed and updated. documented in this encounter Plan of Treatment Date Type Specialty Care Team Description 10/31/2020 Professional [facility] Visit Cardiology Pc, Adc Vascular Room 1 - 11/11/2020 Office Visit Vascular Surgery Osiris Veronica MD [address] [place] [address] [phone] Health Maintenance Due Date Last Done [...] ype Group Dates MEDICARE MEDICARE PART A [id number] 2011-Pres [phone] [employer] X Medicare & B ent [id number] MOI [place] [id number] [facility] [id number] 2019-Pres Indemnity AND LIFE BENEFITS ent documented as of this encounter
--- OUTSIDE RECORDS SUMMARY | 2020-11-01 03:07 | XMS REPORT | Continuity of Care Document ---
:1945 Author Organization [facility] t Address [address] [place] [address] Care Team Providers Name Role Phone Glenys ALEXANDRA Attending Clinician Problems This patient has no known problems. Allergies, Adverse Reactions, Alerts This patient has no known allergies or adverse reactions. Medications This patient has no known medications. Procedures This patient has no known procedures. Encounters Start End Encounter Admission Attending Care Care Encounter Source Date/Time Date/Time Type Type Clinicians Facility Department ID 2020-08-05 2020-08-09 Office TIEN Veronica [id number] 10:20:19 15:14:40 Visit Asia Xiong [id number] Melchor [id number] Rajendra [phone] [address] Results This patient has no known results.
[2020-11-01 04:27] LABS: Absolute Lymphocytes (CBC) 4.1 K/uL (0.7-4.9); Basophils % 0.7 % (0-1.3); Hematocrit 37.5 % (36.0-45.0); Lymphocytes % 29.2 % (15.3-44.8); MPV 9.4 fL (7.6-11.3); RBC Red Blood Cell Count 3.99 M/uL (3.86-4.86)
[2020-11-01 04:31] LABS: Protime INR 0.93
[2020-11-01 04:33] LABS: Potassium 3.3 mmol/L (3.5-5.1)
[2020-11-01] MEDS ORDERED: MORPHINE 2 MG/ML SYR ONE ×2 (04:38→05:35)
[2020-11-01] MEDS ORDERED: ONDANSETRON 4 MG/2 ML VIAL ONE (04:38)
--- NOTE | 2020-11-01 04:50 | ER ---
Nurse's Notes [facility] Name: Renetta Cano Age: 75 yrs Sex: Female : 1945 Arrival Date: 11/01/2020 Time: 03:05 Bed 6 Private MD: Diagnosis: Arterial occlusion left upper extremity Presentation: 11/01 03:00 Chief complaint: EMS states: complained of left sided weakness loss of sensation rr5 started 1 1/2 hour ago. now she complaints of pain on her left leg.history of AFIB. 03:00 Coronavirus screen: Client denies travel out of the [place] in the last 14 days. At this rr5 time, the client does not indicate any symptoms associated with coronavirus-19. Ebola Screen: Patient negative for fever greater than or equal to 101.5 degrees Fahrenheit, and additional compatible Ebola Virus Disease symptoms Patient denies exposure to infectious person. Patient denies travel to an Ebola-affected area in the 21 days before illness onset. An acute neurological deficit is present. The charge nurse has been notified. The patient has been moved to a treatment area. The patients blood glucose was checked before arriving to the hospital and was found to be normal. Initial Sepsis Screen: Does the patient meet any 2 criteria? No. Patient's initial sepsis screen is negative. Does the patient have a suspected source of infection? No. Patient's initial sepsis screen is negative. Risk Assessment: Do you want to hurt yourself or someone else? Patient reports no desire to harm self or others. Note send straight to CT scan. Onset of symptoms was November 01, 2020. 03:00 Method Of Arrival: EMS: [facility] rr5 03:00 Acuity: BONILLA 1 rr5 03:00 Care prior to arrival: Medication(s) given: fenatnyl 150 mcg/IV IV initiated. 20 GA, in rr5 the right antecubital area, Glucose check: 121. 03:00 Note patient stated she sleep around 2300H woke up at around 2 AM her left started to rr5 feel numb. Triage Assessment: 03:00 The onset of the patients symptoms was less than three hours ago. rr5 03:00 The onset of the patients symptoms was November 01, 2020 at 01:30. rr5 03:00 Neuro: Reports numbness in left arm weakness. rr5 Stroke Activation: Symptom onset < 3 hours Physician: Stroke Attending; Name: dr. crouch; Notified At: 03:00; Arrived At: 03:00 Physician: Chief Stroke Resident; Name: ; Notified At: 03:00; Arrived At: Physician: Stroke Resident; Name: ; Notified At: 03:00; Arrived At: Physician: ED Attending; Name: ; Notified At: 03:00; Arrived At: Physician: ED Resident; Name: ; Notified At: 03:00; Arrived At: Historical: - Allergies: 03:00 No Known Allergies; rr5 - Home Meds: 03:00 Aspirin Oral [Active]; Chlorthalidone Oral [Active]; levothyroxine oral [Active]; rr5 atorvastatin oral oral [Active]; - PMHx: 03:00 Hypertension; mouth cancer; Hypothyroidism; Hyperlipidemia; rr5 - PSHx: 03:00 mouth surgery; rr5 - Immunization history:: Adult Immunizations up to date. - Social history:: Smoking status: Patient reports the use of cigarette tobacco products, smokes one pack cigarettes per day. Screenin:00 Abuse screen: Denies threats or abuse. Denies injuries from another. Nutritional rr5 screening: No deficits noted. Tuberculosis screening: No symptoms or risk factors identified. Fall Risk Secondary diagnosis (15 points) CVA, IV access (20 points). Gait- Impaired (20 pts.). Mental Status- Oriented to own ability (0 pts). Total Leone Fall Scale indicates High Risk Score (45 or more points). Fall prevention measures have been instituted. Side Rails Up X 2 Placed Close to Nursing Station Frequent Obs/Assessments Occuring As available patient and family educated on Fall Prevention Program and Strategies. 03:00 VAN Screening: Arm Drift: Severe drift. Visual Disturbance: No visual disturbance rr5 noted. Aphasia: No aphasia noted. Neglect: No neglect noted. 04:00 Patient has been NPO before screening. The patient is alert, able to follow commands. rr5 The patient does not exhibit slurred or garbled speech The patient is not exhibiting difficulty speaking. The patient does not exhibit difficulty understanding words. The patient is able to swallow own secretions with no drooling or need for suction. Patient tolerated one teaspoon of water. No drooling, immediate coughing, gurgling, or clearing of the throat was noted. The patient tolerated 90mL of water. No drooling, immediate coughing, gurgling, or clearing of the throat was noted. The patient passed the bedside swallow screening. Oral medications may be given as ordered. Contact Physician for further diet orders. Provider notified of bedside swallow screening results: Joseph Crouch MD. Assessment: 03:00 VAN Scoring: Arm Drift: Severe drift Visual Disturbance: No visual disturbance noted. rr5 Aphasia: No aphasia noted. Neglect: No neglect noted. 03:10 General: Appears in no apparent distress. uncomfortable, Behavior is calm, cooperative, rr5 appropriate for age. Pain: Complains of pain in left arm Pain currently is 8 out of 10 on a pain scale. Quality of pain is described as aching, Pain began Is intermittent. 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 Cardiovascular: Capillary refill < 3 seconds Patient's skin is warm and dry. Respiratory: Airway is patent Respiratory effort is even, unlabored, Respiratory pattern is regular, symmetrical. GI: No signs and/or symptoms were reported involving the gastrointestinal system. : No signs and/or symptoms were reported regarding the genitourinary system. EENT: No signs and/or symptoms were reported regarding the EENT system. Derm: Skin is pale, left arm Skin temperature is cold at left arm. Musculoskeletal: Capillary refill is > 3 seconds, in left fingers. left hand. 04:00 Patient has been NPO before screening. The patient is alert, and able to follow rr5 commands. The patient does not exhibit slurred or garbled speech. The patient is not exhibiting difficulty speaking. The patient does not exhibit difficulty understanding words. The patient is able to swallow own secretions with no drooling or need for suction. Patient tolerated one teaspoon of water. No drooling, immediate coughing, gurgling, or clearing of the throat was noted. The patient tolerated 90mL of water. No drooling, immediate coughing, gurgling, or clearing of the throat was noted. The patient passed the bedside swallow screening. Oral medications may be given as ordered. Contact Physician for further diet orders. Provider notified of bedside swallow screening results: Joseph Crouch MD. 04:01 Reassessment: unable to palpate pulse on the left arm, temperature is cold, delayed rr5 capillary refill. ED provider aware. doppler used no pulse detected, ED provider informed. 05:02 Reassessment: Patient appears in no apparent distress at this time. Patient and/or sg family updated on plan of care and expected duration. Pain level reassessed. report called to Lashawn FLOWERS accepting nurse for transfer. 05:15 Reassessment: Patient appears in no apparent distress at this time. Patient is alert, rr5 oriented x 3, equal unlabored respirations, skin warm/dry/pink. report given to MARIBELL awake alert, conscious and coherent not in distress, with ongoing heparin 30 ml/hr infusing well. vital signs hemodynamically stable. Vital Signs: 03:00 BP 192 / 90; Pulse 96; Resp 18; Temp 97.5; Pulse Ox 97% ; Weight 83.91 kg; Height 5 ft. rr5 5 in. (165.10 cm); Pain 8/10; 04:20 BP 155 / 85; Pulse 90; Resp 16; Pulse Ox 99% ; rr5 04:23 BP 155 / 76; Pulse 92; Resp 16; Pulse Ox 99% on R/A; sg 04:33 Weight 86.64 kg; rr5 04:50 BP 165 / 85; Pulse 89; Resp 17; Pulse Ox 98% on 2 lpm NC; rr5 05:15 BP 160 / 75; Pulse 85; Resp 19; Pulse Ox 99% on 2 lpm NC; rr5 04:33 Body Mass Index 31.78 (86.64 kg, 165.10 cm) rr5 NIH Stroke Scale Scores: 03:15 NIHSS Score: 2 rr5 04:17 NIHSS Score: 2 rr5 ED Course: 03:00 Arm band placed on right wrist. rr5 03:00 Patient has correct armband on for positive identification. Bed in low position. Call rr5 light in reach. Side rails up X2. 03:00 radiation monitor on. Pulse ox on. NIBP on. rr5 03:00 Maintain EMS IV. Dressing intact. Good blood return noted. Site clean \T\ dry. Gauge \T\ rr 5 site: G 20 right AC. 03:05 Patient arrived in ED. cl3 03:18 Joseph Crouch MD is Attending Physician. pkl 03:21 Delbert Bains, RN is Primary Nurse. rr5 03:26 CT Stroke Brain w/o Contrast In Process Unspecified. EDMS 03:26 Triage completed. rr5 03:30 Initial lab(s) drawn, by ED staff. rr5 03:31 EKG done, by ED staff, reviewed by Joseph Crouch MD. rr5 03:44 initiated a transfer with Erma Matos from [facility] Transfer [facility]. mw2 04:05 COVID swab sent to lab. Flu and/or RSV swab sent to lab. rr5 04:24 Stroke CXR 1 View In Process Unspecified. EDMS 04:40 Inserted saline lock: 20 gauge in right hand, using aseptic technique. rr5 04:42 administrative approval given by Erma Matos/ patient has been accepted to [facility] [address] bed 1461/ Dr. Pang has accepted the patient in transfer/ report to be called [phone]. 05:15 No provider procedures requiring assistance completed. Patient transferred, IV remains rr5 in place. intact, No redness/swelling at site. Administered Medications: 04:27 Drug: Zofran (Ondansetron) 4 mg Route: IVP; Site: right antecubital; rr5 05:10 Follow up: Response: No adverse reaction rr5 04:28 Drug: morphine 2 mg {Note: rass 0.} Route: IVP; Site: right antecubital; rr5 04:40 Drug: Heparin (DVT/PE- Bolus per protocol) - HEParin 80 units/kg {Co-Signature: rr5 sg (Delbert Bains RN).} Route: IVP; Site: right hand; 05:15 Follow up: Response: No adverse reaction rr5 04:42 Drug: Heparin (DVT/PE Drip) 18 units/kg/hr - (HEParin 68012 units, D5W 500 ml) sg {Co-Signature: rr5 (Delbert Bains RN).} Route: IV; Rate: calculated rate; Site: right hand; 05:15 Follow up: Response: No adverse reaction; IV Status: Infusion continued upon transfer rr5 05:20 Drug: morphine 2 mg {Note: rass 0.} Route: IVP; Site: right antecubital; rr5 05:21 Follow up: Response: No adverse reaction; RASS: Alert and Calm (0) rr5 Point of Care Testing: Blood Glucose: 03:00 Blood Glucose: 169 mg/dL; rr5 Ranges: Outcome: 04:49 ER care complete, transfer ordered by MD. loera 05:15 Transferred by ground EMS to [facility], Transfer form completed. rr5 05:15 Condition: stable 05:15 Instructed on the need for transfer. 05:18 Patient left the ED. mw2 NIH Stroke Scale - NIH Stroke Score Date: 11/01/2020 Time: 03:15 Total Score = 2 1a. Level of Consciousness (LOC) - 0(Alert) 1b. Level of Consciousness (LOC) (Year \T\ Age) - 0(Both) 1c. LOC Commands (Open \T\ Closes Eyes/Tobacco Drying Machine Operator) - 0(Both) 2. Best Gaze (Lateral Gaze Paresis) - 0(Normal) 3. Visual Field Loss - 0(No visual loss) 4. Facial Palsy - 0(Normal) 5a. Left Arm: Motor (10-second hold) - 1(Drift) 5b. Right Arm: Motor (10-second hold) - 0(No drift) 6a. Left Leg: Motor (5-second hold - always test supine) - 0(No drift) 6b. Right Leg: Motor (5-second hold - always test supine) - 0(No drift) 7. Limb Ataxia (finger/nose \T\ heel/sears - test with eyes open) - 0(Absent) 8. Sensory Loss (pinprick arms/legs/face) - 1(Mild to moderate loss) 9. Best Language: Aphasia (description/naming/reading) - 0(No aphasia) 10. Dysarthria (speech clarity - read or repeat words) - 0(Normal) 11. Extinction and Inattention (visual/tactile/auditory/spatial/personal) - 0(No abnormality) Initials: rr5 NIH Stroke Scale - NIH Stroke Score Date: 11/01/2020 Time: 04:17 Total Score = 2 1a. Level of Consciousness (LOC) - 0(Alert) 1b. Level of Consciousness (LOC) (Year \T\ Age) - 0(Both) 1c. LOC Commands (Open \T\ Closes Eyes/Tobacco Drying Machine Operator) - 0(Both) 2. Best Gaze (Lateral Gaze Paresis) - 0(Normal) 3. Visual Field Loss - 0(No visual loss) 4. Facial Palsy - 0(Normal) 5a. Left Arm: Motor (10-second hold) - 1(Drift) 5b. Right Arm: Motor (10-second hold) - 0(No drift) 6a. Left Leg: Motor (5-second hold - always test supine) - 0(No drift) 6b. Right Leg: Motor (5-second hold - always test supine) - 0(No drift) 7. Limb Ataxia (finger/nose \T\ heel/sears - test with eyes open) - 0(Absent) 8. Sensory Loss (pinprick arms/legs/face) - 1(Mild to moderate loss) 9. Best Language: Aphasia (description/naming/reading) - 0(No aphasia) 10. Dysarthria (speech clarity - read or repeat words) - 0(Normal) 11. Extinction and Inattention (visual/tactile/auditory/spatial/personal) - 0(No abnormality) Initials: rr5 Signatures: Dispatcher [employer] Farhat Rodney RN RN sg Joseph Crouch MD MD pkErik Chu mw2 Delbert Bains RN RN rr5 Christian Vyas cl3 Delbert Bains RN rr5
--- NOTE | 2020-11-01 04:50 | EDPHYS ---
Physician Documentation [facility] Name: Renetta Cano Age: 75 yrs Sex: Female : 1945 Arrival Date: 11/01/2020 Time: 03:05 Bed 6 Private MD: ED Physician Joseph Schroeder HPI: 11/01 03:31 This 75 yrs old Female presents to ER via EMS with complaints of Weakness. pkl 03:31 The patient presents to the emergency department with weakness of the left upper pkl extremity, that is moderate, paresthesias of the left lower extremity, that is moderate. Onset: The symptoms/episode began/occurred last known well at 11 PM. Patient went to bed and woke up at 2 AM complaining of numbness and weakness left upper extremity. Associated signs and symptoms: The patient has no apparent associated signs or symptoms. Patient has H/O of atrial fibrillation. Historical: - Allergies: 03:00 No Known Allergies; rr5 - Home Meds: 03:00 Aspirin Oral [Active]; Chlorthalidone Oral [Active]; levothyroxine oral [Active]; rr5 atorvastatin oral oral [Active]; - PMHx: 03:00 Hypertension; mouth cancer; Hypothyroidism; Hyperlipidemia; rr5 - PSHx: 03:00 mouth surgery; rr5 - Immunization history:: Adult Immunizations up to date. - Social history:: Smoking status: Patient reports the use of cigarette tobacco products, smokes one pack cigarettes per day. ROS: 03:31 Eyes: Negative for injury, pain, redness, and discharge, ENT: Negative for injury, pkl pain, and discharge, Neck: Negative for injury, pain, and swelling, Cardiovascular: Negative for chest pain, palpitations, and edema, Respiratory: Negative for shortness of breath, cough, wheezing, and pleuritic chest pain, Abdomen/GI: Negative for abdominal pain, nausea, vomiting, diarrhea, and constipation, Back: Negative for injury and pain, : Negative for injury, bleeding, discharge, and swelling, MS/Extremity: Negative for injury and deformity, Skin: Negative for injury, rash, and discoloration. 03:31 Neuro: Positive for numbness, weakness, of the left upper extremity. Exam: 03:31 Head/Face: Normocephalic, atraumatic. Eyes: Pupils equal round and reactive to light, pkl extra-ocular motions intact. Lids and lashes normal. Conjunctiva and sclera are non-icteric and not injected. Cornea within normal limits. Periorbital areas with no swelling, redness, or edema. ENT: Nares patent. No nasal discharge, no septal abnormalities noted. Tympanic membranes are normal and external auditory canals are clear. Oropharynx with no redness, swelling, or masses, exudates, or evidence of obstruction, uvula midline. Mucous membranes moist. Neck: Trachea midline, no thyromegaly or masses palpated, and no cervical lymphadenopathy. Supple, full range of motion without nuchal rigidity, or vertebral point tenderness. No Meningismus. Chest/axilla: Normal chest wall appearance and motion. Nontender with no deformity. No lesions are appreciated. Cardiovascular: Regular rate and rhythm with a normal S1 and S2. No gallops, murmurs, or rubs. Normal PMI, no JVD. No pulse deficits. Respiratory: Lungs have equal breath sounds bilaterally, clear to auscultation and percussion. No rales, rhonchi or wheezes noted. No increased work of breathing, no retractions or nasal flaring. Abdomen/GI: Soft, non-tender, with normal bowel sounds. No distension or tympany. No guarding or rebound. No evidence of tenderness throughout. Back: No spinal tenderness. No costovertebral tenderness. Full range of motion. Skin: Warm, dry with normal turgor. Normal color with no rashes, no lesions, and no evidence of cellulitis. MS/ Extremity: Pulses equal, no cyanosis. Neurovascular intact. Full, normal range of motion. 03:31 Neuro: Orientation: is normal, Mentation: is normal, Cranial nerves: grossly normal, Motor: Strength is 3/5 in the in left upper extremity, Sensation: numbness, that is moderate, of the left upper extremity. 03:31 Musculoskeletal/extremity: Extremities: grossly normal except: noted in the left upper pkl extremity: pain, cyanotic and cold. Left radial weak ( by doppler ). Vital Signs: 03:00 BP 192 / 90; Pulse 96; Resp 18; Temp 97.5; Pulse Ox 97% ; Weight 83.91 kg; Height 5 ft. rr5 5 in. (165.10 cm); Pain 8/10; 04:20 BP 155 / 85; Pulse 90; Resp 16; Pulse Ox 99% ; rr5 04:23 BP 155 / 76; Pulse 92; Resp 16; Pulse Ox 99% on R/A; sg 04:33 Weight 86.64 kg; rr5 04:50 BP 165 / 85; Pulse 89; Resp 17; Pulse Ox 98% on 2 lpm NC; rr5 05:15 BP 160 / 75; Pulse 85; Resp 19; Pulse Ox 99% on 2 lpm NC; rr5 04:33 Body Mass Index 31.78 (86.64 kg, 165.10 cm) rr5 NIH Stroke Scale Scores: 03:15 NIHSS Score: 2 rr5 04:17 NIHSS Score: 2 rr5 MDM: 03:18 Patient medically screened. pkl 03:31 Data reviewed: vital signs, nurses notes, lab test result(s), EKG, radiologic studies, pkl CT scan. ED course: Talked to Dr. Cm ( Neurologist at [facility] ) No thrombolytic, patient outside window for therapy.. 04:46 ED course: Talked to vascular surgeon and Dr. Pang ( Hospitalist ) Accepted trabsfer. pkl To initiate Heparin therapy. 11/01 03:36 Order name: Glucose, Ancillary Testing; Complete Time: 04:46 EDMS 11/01 04:03 Order name: Basic Metabolic Panel; Complete Time: 04:46 5 11/01 04:03 Order name: CBC with Diff; Complete Time: 04:46 5 11/01 04:03 Order name: Protime (+inr); Complete Time: 04:46 5 11/01 03:07 Order name: CT Stroke Brain w/o Contrast 11/01 04:03 Order name: Ptt, Activated; Complete Time: 04:46 rr5 11/01 04:03 Order name: Stroke CXR [address] [facility] 11/01 04:03 Order name: EKG; Complete Time: 04:[address] [facility] 11/01 04:03 Order name: Accucheck; Complete Time: 04:03 5 11/01 04:03 Order name: Cardiac monitoring; Complete Time: 04:[address] [facility] 11/01 04:03 Order name: EKG - Nurse/Tech; Complete Time: 04:[address] [facility] 11/01 04:03 Order name: IV Saline Lock; Complete Time: 04:04 5 11/01 04:03 Order name: Labs collected and sent; Complete Time: 04:04 rr5 11/01 04:03 Order name: NPO; Complete Time: 04:04 rr5 11/01 04:03 Order name: O2 Per Protocol; Complete Time: :58 rr5 11/01 04:03 Order name: O2 Sat Monitoring; Complete Time: :58 rr5 11/01 04:03 Order name: Stroke Swallow Screen; Complete Time: :58 rr5 11/01 04:04 Order name: Swallow Screen; Complete Time: 04:04 rr5 Administered Medications: 04:27 Drug: Zofran (Ondansetron) 4 mg Route: IVP; Site: right antecubital; rr5 05:10 Follow up: Response: No adverse reaction rr5 04:28 Drug: morphine 2 mg {Note: rass 0.} Route: IVP; Site: right antecubital; rr5 04:40 Drug: Heparin (DVT/PE- Bolus per protocol) - HEParin 80 units/kg {Co-Signature: rr5 sg (Delbert Bains RN).} Route: IVP; Site: right hand; 05:15 Follow up: Response: No adverse reaction rr5 04:42 Drug: Heparin (DVT/PE Drip) 18 units/kg/hr - (HEParin 26069 units, D5W 500 ml) sg {Co-Signature: rr5 (Delebrt Bains RN).} Route: IV; Rate: calculated rate; Site: right hand; 05:15 Follow up: Response: No adverse reaction; IV Status: Infusion continued upon transfer rr5 05:20 Drug: morphine 2 mg {Note: rass 0.} Route: IVP; Site: right antecubital; rr5 05:21 Follow up: Response: No adverse reaction; RASS: Alert and Calm (0) rr5 Point of Care Testing: Blood Glucose: 03:00 Blood Glucose: 169 mg/dL; rr5 Ranges: Critical Glucose Levels:Adult <50 mg/dl or >400 mg/dl <40 mg/dl or >180 mg/dl Disposition: 11/01/20 04:49 Transfer ordered to [facility]. Diagnosis is Arterial occlusion left upper extremity. - Reason for transfer: Higher level of care. - Accepting physician is Dr. Pang. - Condition is Stable. - Problem is new. - Symptoms are unchanged. NIH Stroke Scale - NIH Stroke Score Date: 11/01/2020 Time: 03:15 Total Score = 2 1a. Level of Consciousness (LOC) - 0(Alert) 1b. Level of Consciousness (LOC) (Year \T\ Age) - 0(Both) 1c. LOC Commands (Open \T\ Closes Eyes/Eeg Technologist) - 0(Both) 2. Best Gaze (Lateral Gaze Paresis) - 0(Normal) 3. Visual Field Loss - 0(No visual loss) 4. Facial Palsy - 0(Normal) 5a. Left Arm: Motor (10-second hold) - 1(Drift) 5b. Right Arm: Motor (10-second hold) - 0(No drift) 6a. Left Leg: Motor (5-second hold - always test supine) - 0(No drift) 6b. Right Leg: Motor (5-second hold - always test supine) - 0(No drift) 7. Limb Ataxia (finger/nose \T\ heel/sears - test with eyes open) - 0(Absent) 8. Sensory Loss (pinprick arms/legs/face) - 1(Mild to moderate loss) 9. Best Language: Aphasia (description/naming/reading) - 0(No aphasia) 10. Dysarthria (speech clarity - read or repeat words) - 0(Normal) 11. Extinction and Inattention (visual/tactile/auditory/spatial/personal) - 0(No abnormality) Initials: rr5 NIH Stroke Scale - NIH Stroke Score Date: 11/01/2020 Time: 04:17 Total Score = 2 1a. Level of Consciousness (LOC) - 0(Alert) 1b. Level of Consciousness (LOC) (Year \T\ Age) - 0(Both) 1c. LOC Commands (Open \T\ Closes Eyes/Eeg Technologist) - 0(Both) 2. Best Gaze (Lateral Gaze Paresis) - 0(Normal) 3. Visual Field Loss - 0(No visual loss) 4. Facial Palsy - 0(Normal) 5a. Left Arm: Motor (10-second hold) - 1(Drift) 5b. Right Arm: Motor (10-second hold) - 0(No drift) 6a. Left Leg: Motor (5-second hold - always test supine) - 0(No drift) 6b. Right Leg: Motor (5-second hold - always test supine) - 0(No drift) 7. Limb Ataxia (finger/nose \T\ heel/sears - test with eyes open) - 0(Absent) 8. Sensory Loss (pinprick arms/legs/face) - 1(Mild to moderate loss) 9. Best Language: Aphasia (description/naming/reading) - 0(No aphasia) 10. Dysarthria (speech clarity - read or repeat words) - 0(Normal) 11. Extinction and Inattention (visual/tactile/auditory/spatial/personal) - 0(No abnormality) Initials: rr5 Signatures: Dispatcher [employer] EDMS Farhat Vanegas, RN RN Joseph Schroeder MD MD [facility] Erik Newell [facility] Delbert Bains RN RN rr5 Delbert Bains RN rr5 Corrections: (The following items were deleted from the chart) 04:13 04:04 Influenza Screen (A \T\ B)+BA.LAB.BRZ ordered. EDMS EDMS 04:13 04:04 CORONAVIRUS+MR.LAB.BRZ ordered. EDMS EDMS 05:18 04:49 11/01/2020 04:49 Transfer ordered to [address] Diagnosis is Arterial occlusion left upper extremity. Reason for transfer: Higher level of care. Accepting physician is Dr. Pang. Condition is Stable. Problem is new. Symptoms are unchanged. pkl
[2020-11-01] MEDS ORDERED: HEPARIN 5000 UNIT/ML 1 ML VIAL ONE (04:52)
[2020-11-01] MEDS ORDERED: HEPARIN/D5W 25,000 UNIT/500 ML BAG IV ONE (04:53)
[2020-11-01 05:23] VITALS: O2SAT 99
[2020-11-01 05:24] VITALS: BP 155/76
[2020-11-01 05:33] LABS: SARS-COV-2 RT PCR NEGATIVE (NEGATIVE)
--- NOTE | 2020-11-01 08:54 | RAD REPORT ---
EXAM DESCRIPTION: RAD - Chest Single View - 11/01/2020 4:24 am CLINICAL HISTORY: code strokechest film COMPARISON: October 2013 TECHNIQUE: AP portable chest image was obtained 11/01/2020 4:24 am . FINDINGS: Lungs are clear. Heart and vasculature are normal. No measurable pleural effusion and no p neumothorax. No acute bony abnormality seen. No acute aortic findings suspected. IMPRESSION: No acute cardiopulmonary process.
--- NOTE | 2020-11-01 12:20 | RAD REPORT ---
EXAM DESCRIPTION: CT - Ct Stroke Brain Wo Cont - 11/01/2020 6:18 am CLINICAL HISTORY: WEAKNESS COMPARISON: None Available. TECHNIQUE: Multiple helical axial tomographic images were obtained of the head without intravenous c ontrast. This exam was performed according to our departmental dose-optimization program, which inclu cindy automated exposure control, adjustment of the mA and/or kV according to patient size and/or use o f iterative reconstruction technique. FINDINGS: Mild generalized brain volume loss is present. There is no acute intracranial hemorrhage. No mass. No midline shift. No ventriculomegaly. Quinteros-white matter differentiation is maintained. Paranasal sinuses are clear. Mastoid air cells and middle ear spaces are clear. Orbits and orbital co ntents are unremarkable. Osseous structures are unremarkable. Surrounding soft tissues are unremarkable. IMPRESSION: No acute intracranial process. Electronically signed by: Rehan Dukes MD 11/01/2020 3:37 AM CUFF SLITTER Due to temporary technical issues with the PACS/Fluency reporting system, reports are being signed by the in house radiologist without review as a courtesy to ensure prompt reporting. The interpreting r adiologist is fully responsible for the content of the report.
--- NOTE | 2020-11-02 06:11 | EKG ---
Test Date: 2020-11-01 Test Time: 03:31:23 Aircraft Structural Design Engineer: DALTON MEASUREMENT RESULTS: Intervals: Rate: 97 MO: 196 QRSD: 82 QT: 386 QTc: 490 [place]: P: 66 MO: 196 QRS: 8 T: 65 INTERPRETIVE STATEMENTS: Sinus rhythm with premature supraventricular complexes Nonspecific T wave abnormality Prolonged QT Abnormal ECG No previous ECG available for comparison Electronically Signed On 11-02-20 06:09:04 RICE DRIER OPERATOR by Dante Estes
== END 2020-11-01 05:18 | disposition short-term general hospital (02) ==
LOC: ER 03:04
DX: I74.2 Embolism and thrombosis of arteries of the upper extremities (principal); R29.702 NIHSS score 2; I10 Essential (primary) hypertension; Z20.822 Contact with and (suspected) exposure to COVID-19; E78.5 Hyperlipidemia, unspecified; E03.9 Hypothyroidism, unspecified; F17.210 Nicotine dependence, cigarettes, uncomplicated; Z79.82 Long term (current) use of aspirin; Z85.818 Personal history of malignant neoplasm of other sites of lip, oral cavity, and pharynx
CPT/HCPCS: 93005; 85025; 80048; 36415; 85610; 82947; 85730; 0240U; 70450; 71045; J1644 ×2; J2270 ×2; J2405; 99291; 99292